=== PATIENT | male | born 2000 | race Two or more races ===

== ENCOUNTER 2023-06-15 07:00 | Outpatient (AMB) | payer OTHER, SELFPAY ==
[2023-06-15 07:16] VITALS: BP 116/72; PULSE 67; O2SAT 98; BMI 30.5
--- NOTE | 2023-06-15 07:16 | MHC.PC.OV ---
Vital Signs 06/15/23 07:16 Height 5 ft 6 in Weight 189 lb BMI 30.5 BP 116/72 Blood Pressure Location Lt brachial Position Sitting Pulse 67 Pulse Source Pulse Oximeter Pulse Oximetry (%) 98 Oxygen Delivery Method Room Air Intake Visit Reasons: physical exam Allergies cat dander [CATS] Allergy (Mild, Verified 06/15/23 07:17) UNKNOWN dog dander [DOGS] Allergy (Mild, Verified 06/15/23 07:17) UNKNOWN mold Allergy (Unknown, Verified 06/15/23 07:17) UNKNOWN cats Allergy (Unknown, Uncoded 06/15/23 07:17) Itching dogs Allergy (Unknown, Uncoded 06/15/23 07:17) Itching dust Allergy (Unknown, Uncoded 06/15/23 07:17) Itching mold Allergy (Unknown, Uncoded 06/15/23 07:17) unknown pollen Allergy (Unknown, Uncoded 06/15/23 07:17) Itching Tobacco use date assessed: 06/15/23 Dental Screening Dental Screen Date: 06/15/23 Did you have a dental visit in the last 12 months?: No Did you have a dental problem in the last 6 months where you did not have access to dental care?: No Was dental information given to patient?: No HPI HPI Comments History of Present Illness Details 23-year-old male past medical history significant for cerebral palsy is, epilepsy and obesity. Patient of presents today for physical exam. 4 years last seizure activity, not currently on medications. Patient requesting referral to neurology to establish care. Referral entered. Pating reports muffled hearing in right ear x6 months. Patient denies any right ear pain or drainage from the ear denies any fever, chills and nasal congestion. Bilateral ears noted to have cerumen in canal. Patient advise can set up an appointment for bilateral ear flushing and if he continues to experience muffled hearing can proceed with hearing studies. Patient reports bilateral feet redness, with hyperpigmented spots to top foot with occasional skin peeling. On exam patient was noted to have white feeling skin in between all toes with hyperpigmented tear areas noted to anterior foot. Will send anti fungal cream for treatment of athlete's foot Eye exam recommended every couple years. Patient gave and list of dentists Flu shot recommended. Tdap current [facility] Surgical History History of foot surgery History of hernia surgery Family History Mother No problems noted. Father No problems noted. Social History Housing: Other (Live with parents) Alcohol intake: never Patient Tobacco Use Status: Never used Tobacco e-Cigarette/Vaping Use: Former Use Second Hand Smoke Exposure: No service: No Current occupational status: unemployed Cognitive needs: No Hearing needs: No Vision needs: No Questionnaire PHQ-9 Over the last 2 weeks, how often have you been bothered by any of the following problems? 1. Little interest or pleasure in doing things: not at all 2. Feeling down, depressed, or hopeless: several days 3. Trouble falling or staying asleep, or sleeping too much: not at all 4. Feeling tired or having little energy: not at all 5. Poor appetite or overeating: not at all 6. Feeling bad about yourself - or that you are a failure or have let yourself or your family down: not at all 7. Trouble concentrating on things, such as reading the newspaper or watching television: several days 8. Moving or speaking so slowly that other people could have noticed. Or the opposite - being so fidgety or restless that you have been moving around a lot more than usual: not at all 9. Thoughts that you would be better off or of hurting yourself in some way: not at all Total score: 2 Depression Screening Interpretation: Negative Depression Screening Done: Yes Source: Developed by Drs. Yusuf Caal, Connie Huffman, Albert Morales and colleagues, with an educational surya from [employer]. Thrive Questionnaire Date Thrive assessed: 06/15/23 I am a: Patient What is your living situation today?: I have a steady place to live Within the past 12 months, did the food you bought not last and you didn't have the money to get more?: Never true Within the past 12 months, did you worry whether your food would run out before you got money to buy more?: Never true Do you have trouble paying for medicines?: No Do you have trouble getting transportation to medical appointments?: No Do you have trouble paying your heating and electricity bill?: No Do you have trouble taking care of your child, family member or friend?: No Do you have trouble with day-to-day activities such as bathing, preparing meals, shopping, managing finances, etc.?: No Are you currently unemployed and looking for a job?: No Are you interested in more education?: No Currently or been in a relationship where the following occur: no concerns reported AUDIT C Alcohol Use Questionnaire (AUDIT-C) 1. How often do you have a drink containing alcohol?: Never Total Score: 0 RAÚL-7 AMB Questionnaire RAÚL-7 Date RAÚL - 7 assessed: 06/15/23 Feeling nervous, anxious, or on edge: 1 = Several days Not being able to stop or control worryin = Not at all Worrying too much about different things: 0 = Not at all Trouble relaxin = Not at all Being so restless that it is hard to sit still: 0 = Not at all Becoming easily annoyed or irritable: 1 = Several days Feeling afraid as if something awful might happen: 0 = Not at all Total RAÚL-7 score (0-4 normal; 5-9 mild; 10-14 moderate; 15-21 severe): 2 Source: Developed by Drs. Yusuf Caal, Connie Huffman, Albert Morales and colleagues, with an educational surya from [employer]. RAÚL-7 Assessment Billing RAÚL-7 Assessment Tool: RAÚL-7 Assessment 11886 Review of Systems Const Denies chills, Denies fatigue, Denies fever(s) and Denies poor appetite Eyes Denies no additional complaints ENT Reports Normal hearing present Card Denies chest pain, Denies syncope, Denies rapid heart rate and Denies dyspnea Resp Denies cough and Denies dyspnea GI Denies change in stool character, Denies constipation, Denies diarrhea, Denies nausea and Denies vomiting Denies dysuria, Denies urinary frequency and Denies urinary urgency Neuro Reports Normal hearing present, Denies confusion and Denies syncope Psych Denies confusion Endo Denies fatigue Physical exam (Primary Care) Vital Signs: Last Vital Signs Pulse 67 06/15/23 07:16 BP 116/72 06/15/23 07:16 Pulse Ox 98 06/15/23 07:16 Oxygen Delivery Method Room Air 06/15/23 07:16 BMI result Body Mass Index 30.5 Tobacco/Smoking Status: Tobacco use Status Tobacco use date assessed 06/15/23 06/15/23 07:22 Patient Tobacco Use Status Never used Tobacco 06/15/23 07:22 e-Cigarette/Vaping Use Former Use 06/15/23 07:22 PHQ-9: PHQ-9 Score PHQ-9: Total score 2 06/15/23 09:24 Depression Screening Interpretation: Negative Thrive Assessment: Date of Thrive Assessment Date Thrive assessed 06/15/23 06/15/23 07:22 Currently or been in a relationship where the following occur: no concerns reported Const General: cooperative and healthy appearing; No acute distress or confusion Orientation/consciousness: patient oriented x3 and No confusion HENMT Head: Yes normocephalic and Yes atraumatic Ears: external ears normal and TM's normal bilaterally General nose exam: Normal external nose present and Normal nasal mucous membranes and turbinates present Face and sinus: Yes normal facial exam and Yes sinuses nontender Mouth: moist mucous membranes Throat: Yes tonsils normal Eyes Conjunctivae: conjunctivae normal Sclerae: sclerae normal Pupils: Equal, round and reactive pupils present and Pupils normal by confrontation EOM: EOMs intact bilaterally Direct Ophthalmoscopy: normal light reflex Neck Neck: Yes no lymphadenopathy and Yes supple Thyroid: Thyroid normal Chest Chest palpation & inspection: normal inspection of the chest Resp Effort & Inspection: normal respiratory effort Auscultation: clear to auscultation bilaterally, no crackles, no rhonchi and no wheezes Cardio Rate: regular rate Rhythm: regular rhythm Peripheral pulses: radial pulses present and dorsalis pedis present GI Inspection: Yes normal to inspection Palpation (GI): Soft to palpation, nontender and No hepatosplenomegaly present Auscultation: normoactive bowel sounds Skin General skin exam: no rashes or lesions noted Neuro General: patient oriented x3 and No confusion Cranial nerves: Yes CN's II-XII intact bilaterally, Yes Equal, round and reactive pupils present and Yes Normal hearing present Cognition (Neuro): normal cognition Gait exam (Neuro): Normal gait present Motor exam (neuro): 5/5 motor strength present throughout Deep tendon reflexes (DTR's): Right brachioradialis reflex intensity grade: 2+, Left brachioradialis reflex intensity grade: 2+, Right patellar reflex intensity grade: 2+ and Left patellar reflex intensity grade: 2+ Extrem General: No edema Assessment and Plan Assessment & Plan (1) Epilepsy: Code(s): G40.909 - Epilepsy, unspecified, not intractable, without status epilepticus Plan: No noted seizure activity in the last 4 years patient requesting referral to a neurologist establish care. Referral entered. (2) Cerebral palsy: Code(s): G80.9 - Cerebral palsy, unspecified (3) Tinea pedis: Code(s): B35.3 - Tinea pedis Plan: Keep his on cream prescribed daily x 6weeks. Orders: Referrals Neurology Referral G40.909 - Epilepsy, unspecified, not intractable, without status epilepticus, G80.9 - Cerebral palsy, unspecified Medications: New ketoconazole 2% for 6 weeks 1 appl topical DAILY 60 grams 0RF B35.3 - Tinea pedis Coding Level of Care Code Est Pt Prev Care 18-39y(78140) Diagnoses Epilepsy G40.909 Cerebral palsy G80.9 Tinea pedis B35.3 Additional Codes RAÚL-7 Assessment Billing - RAÚL-7 Assessment Tool: RAÚL-7 Assessment 46781 ([id number]) PHQ-9 - 08584 - PHQ-9 Billing: ([id number])
== END 2023-06-15 07:42 | disposition home or self-care (01) ==
PROVIDERS: PCP Internal Medicine; Visit Provider Nurse Practitioner Family
DX: Z00.00 Encounter for general adult medical examination without abnormal findings (principal); G40.909 Epilepsy, unspecified, not intractable, without status epilepticus; G80.9 Cerebral palsy, unspecified; B35.3 Tinea pedis
CPT/HCPCS: 99395

== ENCOUNTER 2024-03-21 13:28 | Outpatient (AMB) | payer OTHER, SELFPAY ==
--- NOTE | 2024-03-21 13:37 | A.OFFVIS_ITS ---
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 Clinical Care Coordinator Required: No Allergies cat dander [CATS] Allergy (Mild, Verified 03/21/24 13:37) UNKNOWN dog dander [DOGS] Allergy (Mild, Verified 03/21/24 13:37) UNKNOWN mold Allergy (Unknown, Verified 03/21/24 13:37) UNKNOWN cats Allergy (Unknown, Uncoded 03/21/24 13:37) Itching dogs Allergy (Unknown, Uncoded 03/21/24 13:37) Itching dust Allergy (Unknown, Uncoded 03/21/24 13:37) Itching mold Allergy (Unknown, Uncoded 03/21/24 13:37) unknown pollen Allergy (Unknown, Uncoded 03/21/24 13:37) Itching HPI Comments Details: 24y/o male with cerebral palsy - comes for further management of his seizures. His cerebral palsy is mild with right sided weakness . He started having seizures in his childhood - between ages [age] . He was trialed on different medications, but he has been seizure free for over 10 years.His seizures are staring episodes lasting 1-2 min. He denies any Tonic clonic convulsions. He stays home with his disabled daughter. 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 he sharp snot drive and does not have license. Patient reports sleep issues- loud snoring and hypersomnia. 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 Father No problems noted. Social History Housing: Other (Live with parents) Alcohol intake: never Patient Tobacco Use Status: Never used Tobacco e-Cigarette/Vaping Use: Former Use Second Hand Smoke Exposure: No service: No Current occupational status: unemployed Cognitive needs: No Hearing needs: No Vision needs: No Physical Exam Vital Signs: Last Vital Signs Pulse 70 03/21/24 13:40 Resp 16 03/21/24 13:40 BP 106/68 03/21/24 13:40 Pulse Ox 99 03/21/24 13:40 Oxygen Delivery Method Room Air 03/21/24 13:40 BMI result Body Mass Index 29.3 Const General: cooperative, healthy appearing and no acute distress Nutritional Appearance: average body habitus Orientation/consciousness: patient oriented x3 Eyes Pupils: Equal, round and reactive pupils present Neuro Other: Right spastic hemiparesis Right UE- 5-/5 Right LE - distal 0-1/5 Proximal 4+/5 Increased tone in right UE and LE Mallampatti grade 4 speech - normal General: patient oriented x3 and moves all extremities Cranial nerves: Yes Facial sensation intact/muscles of mastication intact, Yes Equal, round and reactive pupils present, Yes Bilaterally intact EOM present, Yes Nystagmus not present, Yes Normal facial strength present and Yes Midline tongue present Cognition (Neuro): normal cognition Gait exam (Neuro): Spastic hemiparesis gait present Deep tendon reflexes (DTR's): Right triceps reflex intensity grade: 3+, Left triceps reflex intensity grade: 3+, Rt Biceps (C5, C6): 3+, Left biceps reflex intensity grade: 3+, Right brachioradialis reflex intensity grade: 4+, Left brachioradialis reflex intensity grade: 3+, Right patellar reflex intensity grad e: 4+, Left patellar reflex intensity grade: 4+, Right ankle reflex intensity grade: 4+ and Left ankle reflex intensity grade: 4+ Coordination: [id number] test normal Assessment & Plan Assessment & Plan (1) Cerebral palsy: Comment: Right spastic hemiparesis Code(s): G80.9 - Cerebral palsy, unspecified Category: Medical (2) Epilepsy: Comment: last seizure 2013, complex partial, absence Code(s): G40.909 - Epilepsy, unspecified, not intractable, without status epilepticus Category: Medical (3) Snoring: Code(s): R06.83 - Snoring Category: Medical (4) Hypersomnia: Code(s): G47.10 - Hypersomnia, unspecified Category: Medical Plan I will evaluate him with MRI Brain and EEG for baseline will consider medications for seizures if he has any abnormality in his EEG Home sleep test to r/o sleep apnea. patient does not drive Orders: Orders EEG electroencephalogram Today G40.909 - Epilepsy, unspecified, not intractable, without status epilepticus, G47.10 - Hypersomnia, unspecified, G80.9 - Cerebral palsy, unspecified, R06.83 - Snoring RT home sleep study Today G40.909 - Epilepsy, unspecified, not intractable, without status epilepticus, G47.10 - Hypersomnia, unspecified, G80.9 - Cerebral palsy, unspecified, R06.83 - Snoring MR head/brain wo con Today G40.909 - Epilepsy, unspecified, not intractable, without status epilepticus, G47.10 - Hypersomnia, unspecified, G80.9 - Cerebral palsy, unspecified, R06.83 - Snoring Coding Level of Care Code New Pt Level 4 (30080) Diagnoses Cerebral palsy G80.9 Epilepsy G40.909 Snoring R06.83 Hypersomnia G47.10
[2024-03-21 13:40] VITALS: BP 106/68; PULSE 70; RESP 16; O2SAT 99; BMI 29.3
== END 2024-03-21 14:07 | disposition home or self-care (01) ==
PROVIDERS: Absent Provider Psychiatry & Neurology Neurology; PCP Internal Medicine; Visit Provider Psychiatry & Neurology Neurology
DX: G80.9 Cerebral palsy, unspecified (principal); G40.909 Epilepsy, unspecified, not intractable, without status epilepticus; R06.83 Snoring; G47.10 Hypersomnia, unspecified
CPT/HCPCS: 99204

== ENCOUNTER → 2024-03-21 13:28 | Outpatient (BNVA) | payer OTHER, SELFPAY | PROVIDERS: Absent Provider Psychiatry & Neurology Neurology; PCP Internal Medicine; Visit Provider Psychiatry & Neurology Neurology | DX: G40.909 Epilepsy, unspecified, not intractable, without status epilepticus (principal); G80.9 Cerebral palsy, unspecified; G47.10 Hypersomnia, unspecified; R06.83 Snoring | CPT/HCPCS: 99202 ==

== ENCOUNTER 2024-04-22 16:56 | Outpatient (REF) | payer OTHER, SELFPAY ==
--- NOTE | ~2024-04-22 | MR_ITS ---
EXAMINATION: MR BRAIN WITHOUT CONTRAST CLINICAL INFORMATION: 24-year-old with cerebral palsy, unspecified. History of epilepsy. COMPARISON: None available. TECHNIQUE: MRI of the brain was obtained using routine sequences without contrast. FINDINGS: Brain Volume: Within normal limits within the limitations of qualitative assessment. Structural: No malformations. Brain and Meninges: DWI sequence demonstrates no restricted diffusion to suggest acute or subacute cerebral ischemia. Susceptibility-weighted sequence demonstrates no abnormal signal loss to suggest hemorrhage, hemosiderin staining or abnormal mineralization. The brain parenchyma is normal in morphology and signal intensity. Govea-white matter interface is preserved. The mesial temporal lobe structures are bilaterally symmetric and normal in morphology and signal. No space-occupying process, mass effect or extra-axial fluid collections are seen. Ventricles and Subarachnoid Spaces: The ventricular system and subarachnoid spaces are within normal range; there is no hydrocephalus. Orbital Structures: The visualized orbital structures are grossly unremarkable within the limitations of the study. Vascular: Signal voids are noted in the visualized major intracranial vessels. Osseous Structures, Sinuses/Mastoids, Extracranial Soft Tissues: Osseous marrow signal intensity appears within normal limits. Note is made of a 2.3 cm retention cyst in the right maxillary sinus and some mucosal thickening in the left maxillary sinus. A few prominent IJ chain lymph nodes are seen bilaterally one of which on the left has a thickened cortex measuring 9 mm. Recommend follow-up neck ultrasound for further assessment at a clinically appropriate interval and correlate with clinical history. MR/MR head/brain wo con IMPRESSION: 1. Normal noncontrast MRI of the brain. 2. Bilateral maxillary sinus mucosal inflammatory changes. 3. A few prominent IJ chain lymph nodes are seen bilaterally one of which on the left has a thickened cortex. Recommend follow-up neck ultrasound at a clinically appropriate interval and correlate with clinical history. Electronically signed by: Frandy Ward MD 06/19/2024 03:56 PM [facility]
== END 2024-04-22 16:57 | disposition home or self-care (01) ==
LOC: HO.MRI 16:56
PROVIDERS: PCP Internal Medicine; Visit Provider Psychiatry & Neurology Neurology
DX: G80.9 Cerebral palsy, unspecified (principal); G40.909 Epilepsy, unspecified, not intractable, without status epilepticus; R06.83 Snoring; G47.10 Hypersomnia, unspecified
CPT/HCPCS: 70551

== ENCOUNTER → 2024-05-02 14:16 | Outpatient (REF) | payer OTHER, SELFPAY | LOC: HO.SL 14:16 | PROVIDERS: PCP Physician Assistant; Visit Provider Psychiatry & Neurology Neurology | DX: Z13.89 Encounter for screening for other disorder (principal) ==

== ENCOUNTER 2024-06-05 13:02 | Outpatient (REF) | payer OTHER, SELFPAY ==
--- NOTE | 2024-06-05 13:04 | EEG_ITS ---
This is a 16-channel EEG with an EKG lead. The patient is reported awake during the tracing. Background EEG rhythm is low amplitude fast with the patient transitioning into light drowsiness. No definite sharp wave spikes, paroxysmal tendency, or asymmetry noted. Some EKG artifacts and lead and muscle artifacts are noted. Photic stimulation does not produce any significant abnormality. Hyperventilation is not performed. Cardiac lead does not reveal any significant abnormality. IMPRESSION: Unremarkable EEG. MD ROXY Cannon/YAMILETH / [id number]
== END 2024-06-05 13:03 | disposition home or self-care (01) ==
LOC: HO.NEURO 13:02
PROVIDERS: PCP Physician Assistant; Visit Provider Psychiatry & Neurology Neurology
DX: G80.9 Cerebral palsy, unspecified (principal); G40.909 Epilepsy, unspecified, not intractable, without status epilepticus; R06.83 Snoring; G47.10 Hypersomnia, unspecified; R80.9 Proteinuria, unspecified
CPT/HCPCS: 95816

== ENCOUNTER → 2024-06-05 14:11 | Outpatient (REF) | payer OTHER, SELFPAY | LOC: HO.SL 14:11 | PROVIDERS: PCP Physician Assistant; Visit Provider Psychiatry & Neurology Neurology | DX: G80.9 Cerebral palsy, unspecified (principal); G40.909 Epilepsy, unspecified, not intractable, without status epilepticus; R06.83 Snoring | CPT/HCPCS: 95806 ==

== ENCOUNTER 2024-07-09 12:20 | Outpatient (REF) | payer OTHER, SELFPAY ==
[2024-07-09 13:37] LABS: Hematocrit 45.5 % (42.0-52.0); Hemoglobin 15.8 g/dl (14.0-18.0); Mean Corpuscular HGB Conc 34.7 g/dl (31.0-36.0); Mean Corpuscular Hemoglobin 29.8 pg (27.0-33.0); Mean Corpuscular Volume 85.7 fL (80.0-98.0); Mean Platelet Volume 10.8 fL (9.4-12.4); Platelet Count 275 X10*3/uL (160-400); Red Blood Count 5.31 X10*6/uL (4.60-5.80); Red Cell Distribution Width 12.5 % (11.0-16.0); White Blood Count 7.7 X10*3/uL (4.8-10.8)
[2024-07-09 13:59] LABS: Alanine Aminotransferase 33 U/L (0-40); Albumin Level 4.7 g/dL (3.5-5.0); Alkaline Phosphatase 103 U/L (39-117); Anion Gap 11 (12-20); Aspartate Amino Transferase 22 U/L (5-37); Bilirubin Total 0.4 mg/dL (0.0-1.0); Blood Urea Nitrogen 8 mg/dL (9-16); Calcium 9.9 mg/dL (8.4-10.2); Carbon Dioxide 29 mmol/L (22-29); Chloride 106 mmol/L (96-108); Estimated Glomerular Filt Rate > 60; Glucose Fasting 71 mg/dL (60-99); Potassium 4.2 mmol/L (3.3-5.1); Sodium 142 mmol/L (135-145); Total Protein 7.9 g/dL (6.5-8.0)
== END 2024-07-09 12:21 | disposition home or self-care (01) ==
LOC: HO.LAB 12:20
PROVIDERS: PCP Physician Assistant; Visit Provider Physician Assistant
DX: Z13.1 Encounter for screening for diabetes mellitus (principal); B35.3 Tinea pedis; G80.2 Spastic hemiplegic cerebral palsy
CPT/HCPCS: 36415; 80053; 85027; 96127; 99395

== ENCOUNTER 2024-07-09 12:20 | Outpatient (AMB) | payer OTHER, SELFPAY ==
[2024-07-09 12:24] VITALS: BP 118/62; PULSE 94; O2SAT 97; BMI 30.2
--- NOTE | 2024-07-09 12:24 | A.OFFPC_ITS ---
Vital Signs 07/09/24 12:24 Height 5 ft 6 in Weight 187 lb BMI 30.2 BP 118/62 Blood Pressure Location Lt brachial Position Sitting Pulse 94 Pulse Source Pulse Oximeter Pulse Oximetry (%) 97 Oxygen Delivery Method Room Air Intake Visit Reasons: annual exam Intake Note: Pt is here for transfer of care from formerly [facility]. Activity Therapist Required: No Accompanied by: Self / Same As Patient Allergies cat dander [CATS] Allergy (Mild, Verified 07/09/24 12:36) UNKNOWN dog dander [DOGS] Allergy (Mild, Verified 07/09/24 12:36) UNKNOWN mold Allergy (Unknown, Verified 07/09/24 12:36) UNKNOWN cats Allergy (Unknown, Uncoded 07/09/24 12:36) Itching dogs Allergy (Unknown, Uncoded 07/09/24 12:36) Itching dust Allergy (Unknown, Uncoded 07/09/24 12:36) Itching mold Allergy (Unknown, Uncoded 07/09/24 12:36) unknown pollen Allergy (Unknown, Uncoded 07/09/24 12:36) Itching Medication List - Last Reconciled 07/09/24 by Nathaniel Castillo PA-C No Known Home Meds Tobacco use date assessed: 07/09/24 Dental Screening Dental Screen Date: 06/15/23 HPI annual exam HPI Details Patient is a 24 year male here today for an annual physical and transfer care visit. Patient has a past medical history significant for cerebral palsy and epilepsy. He is followed by a local neurologist. Concerns--> reports hyperpigmented spots over his bilateral feet and ankles have spread. Also reports having various pain generators including his right shoulder, left ribs and lower back. We attributes some of his pains to be related to his cerebral palsy. He is willing to try muscle relaxer as needed for his pain. Vaccines: Declines flu vaccine, needs tetanus though declines today as well. [facility] Medical History Hypersomnia Snoring Class 1 obesity with body mass index (BMI) of 30.0 to 30.9 in adult Epilepsy Cerebral palsy Tinea pedis Surgical History History of foot surgery History of hernia surgery Family History Mother No problems noted. Father No problems noted. Social History Housing: Other (Live with parents) Alcohol intake: never Patient Tobacco Use Status: Never used Tobacco e-Cigarette/Vaping Use: Former Use Second Hand Smoke Exposure: No service: No Current occupational status: unemployed Cognitive needs: No Hearing needs: No Vision needs: No Questionnaire PHQ-9 Over the last 2 weeks, how often have you been bothered by any of the following problems? 1. Little interest or pleasure in doing things: not at all 2. Feeling down, depressed, or hopeless: not at all 3. Trouble falling or staying asleep, or sleeping too much: more than half the days 4. Feeling tired or having little energy: several days 5. Poor appetite or overeating: not at all 6. Feeling bad about yourself - or that you are a failure or have let yourself or your family down: not at all 7. Trouble concentrating on things, such as reading the newspaper or watching television: not at all 8. Moving or speaking so slowly that other people could have noticed. Or the opposite - being so fidgety or restless that you have been moving around a lot more than usual: not at all 9. Thoughts that you would be better off or of hurting yourself in some way: not at all Total score: 3 Depression Screening Interpretation: Positive Depression Screening Follow-up: Existing condition Depression Screening Done: Yes 60463 - PHQ-9 Billing: Yes Source: Developed by Drs. Yusuf Caal, Connie Huffman, Albert Morales and colleagues, with an educational surya from [employer]. Thrive Questionnaire Date Thrive assessed: 07/09/24 I am a: Patient What is your living situation today?: I have a steady place to live Within the past 12 months, did the food you bought not last and you didn't have the money to get more?: I choose not to answer this question Within the past 12 months, did you worry whether your food would run out before you got money to buy more?: Never true Do you have trouble paying for medicines?: No Do you have trouble getting transportation to medical appointments?: No Do you have trouble paying your heating and electricity bill?: No Do you have trouble taking care of your child, family member or friend?: No Do you have trouble with day-to-day activities such as bathing, preparing meals, shopping, managing finances, etc.?: No Are you currently unemployed and looking for a job?: I choose not to answer this question Are you interested in more education?: No Please select the resources that you would like help with: None Currently or been in a relationship where the following occur: No concerns reported THRIVE Score: 0 AUDIT C Alcohol Use Questionnaire (AUDIT-C) 1. How often do you have a drink containing alcohol?: Never 3. How often do you have six or more drinks on one occasion?: Never Total Score: 0 RAÚL-7 AMB Questionnaire RAÚL-7 Date RAÚL - 7 assessed: 07/09/24 Feeling nervous, anxious, or on edge: 0 = Not at all Not being able to stop or control worryin = Not at all Worrying too much about different things: 0 = Not at all Trouble relaxin = Not at all Being so restless that it is hard to sit still: 0 = Not at all Becoming easily annoyed or irritable: 0 = Not at all Feeling afraid as if something awful might happen: 0 = Not at all Total RAÚL-7 score (0-4 normal; 5-9 mild; 10-14 moderate; 15-21 severe): 0 Source: Developed by Drs. Yusuf Caal, Connie Huffman, Albert Morales and colleagues, with an educational surya from [employer]. RAÚL-7 Assessment Billing RAÚL-7 Assessment Tool: RAÚL-7 Assessment 34247 Review of Systems Const Denies body aches, Denies chills, Denies excessive sweating, Denies fatigue, Denies fever(s) and Denies headache(s) Eyes Denies blurry vision ENT Denies dysphagia, Denies vertigo, Denies dizziness, Denies headache(s), Denies hearing loss and Denies tinnitus Card Denies chest pain, Denies chest pain with activity, Denies syncope, Denies irregular heart rhythm and Denies dyspnea Resp Denies chest congestion, Denies cough, Denies hemoptysis, Denies dyspnea and Denies wheezing GI Denies abdominal pain, Denies melena, Denies hematochezia, Denies coffee ground emesis, Denies dysphagia, Denies diarrhea, Denies nausea and Denies vomiting Denies difficulty urinating, Denies dysuria, Denies urinary frequency, Denies urinary hesitancy and Denies urinary urgency Musc Denies arthralgias, Denies limited range of motion, Denies muscle cramps and Denies muscle weakness Skin/Breast Denies rash and Denies skin ulcer Neuro Denies Abnormal speech present, Denies confusion, Denies vertigo, Denies dizziness, Denies syncope, Denies headache(s), Denies memory loss and Denies seizure-like activity Psych Denies anxiety, Denies confusion, Denies depression, Denies memory loss, Denies panic attacks and Denies paranoia Endo Denies excessive sweating, Denies fatigue, Denies flushing, Denies polydipsia and Denies polyuria Aller/Immun Denies wheezing Physical exam (Primary Care) Vital Signs: Last Vital Signs Pulse 94 07/09/24 12:24 BP 118/62 07/09/24 12:24 Pulse Ox 97 07/09/24 12:24 Oxygen Delivery Method Room Air 07/09/24 12:24 BMI result Body Mass Index 30.2 BMI Assessment/Plan discussion: High BMI High, discussed plan: lifestyle, weight reduction, dietary and physical activity Tobacco/Smoking Status: Tobacco use Status Tobacco use date assessed 07/09/24 07/09/24 12:28 Patient Tobacco Use Status Never used Tobacco 07/09/24 12:24 e-Cigarette/Vaping Use Former Use 07/09/24 12:24 PHQ-9: PHQ-9 Score PHQ-9: Total score 3 07/09/24 12:28 Depression Screening Interpretation: Positive Depression Screening Follow-up: Existing condition Thrive Assessment: Date of Thrive Assessment Date Thrive assessed 07/09/24 07/09/24 12:28 Currently or been in a relationship where the following occur: No concerns reported Const General: cooperative, comfortable, no acute distress, alert and awake; No c onfusion Orientation/consciousness: oriented to person, oriented to place, patient oriented x3 and No confusion HENMT Other: RIGHT EXTERNAL CANAL WITH SOME MINIMAL CERUMEN Head: Yes normocephalic Ears: external ears normal and TM's normal bilaterally Face and sinus: No sinus tenderness Mouth: Normal oral and palatal mucosa present and tongue normal Teeth and gingiva: dentition normal and gingiva normal Throat: Yes posterior oropharynx normal, Yes tonsils normal and Yes uvula midline Eyes Conjunctivae: conjunctivae normal Sclerae: sclerae normal Pupils: Equal, round and reactive pupils present EOM: EOMs intact bilaterally Direct Ophthalmoscopy: No no photophobia Neck Neck: Yes no lymphadenopathy, No tender and Yes no JVD Thyroid: Thyroid normal Carotids: no bruits Chest Chest palpation & inspection: no tenderness Resp Effort & Inspection: normal respiratory effort, no audible wheezes, not labored and no stridor Auscultation: no crackles, no rales, no rhonchi and no wheezes Cardio Jugular venous distension: no JVD Rate: regular rate, not bradycardic and not tachycardic Rhythm: regular rhythm Bruits: no carotid bruits Peripheral pulses: Peripheral pulses 2+ throughout GI Inspection: Yes normal to inspection, No abdominal wall ecchymosis and No visible herniation Palpation (GI): Soft to palpation, nontender, no guarding, not rigid and No hepatosplenomegaly present Auscultation: normoactive bowel sounds General: Yes no CVA tenderness Back/Spine/Pelvis Back: no CVA tenderness and No back tenderness Cervical Spine: cervical ROM normal Thoracic/Lumbar Spine: thoracic and lumbar spine normal to inspection, straight leg raise negative bilaterally, No thoraco-lumbar ROM limited and No lumbar spinal tenderness Skin Lesions: no lesions Rashes: no rashes Wounds: no wounds Neuro General: oriented to person, oriented to place, patient oriented x3, CN's II-XI intact bilaterally and No confusion Cranial nerves: Yes Equal, round and reactive pupils present and Yes Normal accommodation reflex present Cognition (Neuro): normal cognition Speech: No Abnormal speech present Gait exam (Neuro): Normal gait present Motor exam (neuro): 5/5 motor strength present throughout Extrem Right upper extremity: full ROM; no cyanosis Left upper extremity: full ROM; no cyanosis Right lower extremity: no edema Left lower extremity: no edema Psych Appearance: grossly normal Mental Status: mental status grossly normal Affect: normal affect Attitude: cooperative Thought process: Normal thought process present Office Procedures Flu Questionnaire Does the patient have a severe egg allergy?: No Immunizations Fluarix Triv [id number] (PF) 45 mcg (15 mcg x 3)/0.5 mL IM syringe Performing Provider: Nathaniel Castillo PA-C [place] [facility] [facility] [place] [facility] Documented (not given) by: JANE Ricketts on 07/09/24 12:30 Reason Not Given: Patient Refused Coding Level of Care Code Est Pt Prev Care 18-39y([id number]) Diagnoses Annual physical exam Z00.00 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 Cerebral palsy type: spastic hemiplegic Nonintractable epilepsy without status epilepticus, unspecified epilepsy type G40.909 Epilepsy type: unspecified Intractability: not intractable Status epilepticus: without status epilepticus Class 1 obesity E66.811 Tinea pedis of both feet B35.3 Laterality: bilateral Screening for diabetes mellitus (DM) Z13.1 Sensorineural hearing loss (SNHL) of right ear, unspecified hearing status on contralateral side H90.5 Contralateral hearing status: unspecified Additional Codes RAÚL-7 Assessment Billing - RAÚL-7 Assessment Tool: RAÚL-7 Assessment 19524 ([id number]) PHQ-9 - 77234 - PHQ-9 Billing: Yes ([id number]) Assessment & Plan Assessment & Plan (1) Annual physical exam: Code(s): Z00.00 - Encounter for general adult medical examination without abnormal findings Category: Medical Plan: As per HPI (2) Cerebral palsy: Comment: Right spastic hemiparesis Code(s): G80.9 - Cerebral palsy, unspecified Category: Medical Qualifiers: Cerebral palsy type: spastic hemiplegic Qualified Code(s): G80.2 - Spastic hemiplegic cerebral palsy Plan: Patient followed by Neurology (3) Epilepsy: Comment: last seizure 2013, complex partial, absence Code(s): G40.909 - Epilepsy, unspecified, not intractable, without status epilepticus Category: Medical Qualifiers: Epilepsy type: unspecified Intractability: not intractable Status epilepticus: without status epilepticus Qualified Code(s): G40.909 - Epilepsy, unspecified, not intractable, without status epilepticus Plan: Has not had a seizure in over 10 years, not on any seizure medication at this time. (4) Class 1 obesity: Code(s): E66.811 - Obesity, class 1 Category: Medical Plan: Patient does understand his BMI is over 30 will work on being more physically active and adapting to better eating habits to reduce his weight. (5) Tinea pedis: Code(s): B35.3 - Tinea pedis Category: Medical Qualifiers: Laterality: bilateral Qualified Code(s): B35.3 - Tinea pedis Plan: Has noted spotted hyperpigmentation over bilateral feet and ankles. He has tri ed to cream in the past which has been helpful though reports his spots have returned. Unclear if his spots are hemosiderin staining versus tinea versicolor. Will supply patient with ketoconazole cream to use on the areas. (6) Screening for diabetes mellitus (DM): Code(s): Z13.1 - Encounter for screening for diabetes mellitus Category: Medical Plan: As per HPI (7) Right SNHL: Code(s): H90.5 - Unspecified sensorineural hearing loss Category: Medical Qualifiers: Contralateral hearing status: unspecified Qualified Code(s): H90.5 - Unspecified sensorineural hearing loss Plan: Patient reports muffled hearing over his right ear. Did clear his right ear from some minimal cerumen . Will send for hearing exam Orders: Orders Influenza [id number] Immunization Today Z23 - Encounter for immunization Complete Blood Count no Diff Today Z13.1 - Encounter for screening for diabetes mellitus Comprehensive [place]. Panel Fast Today Z13.1 - Encounter for screening for diabetes mellitus Referrals Speech and Hearing Referral H90.5 - Unspecified sensorineural hearing loss Medications: New ketoconazole 2% 1 appl topical DAILY 30 days 60 grams 0RF B35.3 - Tinea pedis baclofen 5 mg PO DAILY 14 days 14 tabs 0RF G80.2 - Spastic hemiplegic cerebral palsy
== END 2024-07-09 13:07 | disposition home or self-care (01) ==
PROVIDERS: PCP Physician Assistant; Visit Provider Physician Assistant
DX: Z00.00 Encounter for general adult medical examination without abnormal findings (principal); G80.2 Spastic hemiplegic cerebral palsy; G40.909 Epilepsy, unspecified, not intractable, without status epilepticus; E66.811 Obesity, class 1; Z68.30 Body mass index [BMI] 30.0-30.9, adult; B35.3 Tinea pedis; Z13.1 Encounter for screening for diabetes mellitus; H90.5 Unspecified sensorineural hearing loss

== ENCOUNTER 2024-07-31 16:11 | Outpatient (REF) | payer OTHER, SELFPAY ==
--- NOTE | ~2024-07-31 | US_ITS ---
EXAMINATION: US SOFT TISSUE HEAD AND/OR NECK CLINICAL INFORMATION: Localized enlarged lymph nodes.. COMPARISON: None available. Correlation made with MRI of brain 04/22/2024. TECHNIQUE: Linear transducer singh-scale and color Doppler examination with attention to the region of the bilateral neck vaishali regions. FINDINGS: NODES: Right Neck: -Left level II lymph nodes measure 1.6 x 0.5 x 1.4 cm, and 3.3 x 1.2 x 1.7 cm. -Left level III lymph node measures 2.1 x 0.4 x 1.1 cm. -Left level IV lymph node measures 1.0 x 0.3 x 0.4 cm. Left Neck: -Left level II lymph nodes measure 2.4 x 1.1 x 1.2 cm, and 1.5 x 0.7 x 1.7 cm. -Left level III lymph node measures 0.8 x 0.4 x 0.7 cm. -Left level IV lymph node measures 1.4 x 0.4 x 0.6 cm. -All the above lymph nodes demonstrate preserved fatty salomon, reniform shape, no significant hyperemia, and no suspicious features. These are likely reactive lymph nodes. -No soft tissue fluid collections. US/US soft tiss head and/or neck IMPRESSION: 1. Reactive appearing bilateral cervical chain lymph nodes as discussed. No suspicious features seen. 2. There is continued clinical concern, CT of the neck with contrast would be recommended if felt to alter management. Alternatively, follow-up ultrasound in 6-8 weeks could be considered. Electronically signed by: Tristan Gutierrez MD 08/01/2024 09:22 AM NATALEE
== END 2024-07-31 16:12 | disposition home or self-care (01) ==
LOC: HO.US 16:11
PROVIDERS: PCP Physician Assistant; Visit Provider Physician Assistant
DX: R59.0 Localized enlarged lymph nodes (principal)
CPT/HCPCS: 76536

== ENCOUNTER → 2024-07-31 16:15 | Outpatient (BNV) | payer OTHER, SELFPAY | PROVIDERS: PCP Physician Assistant; Visit Provider Radiology Diagnostic Radiology | DX: R59.0 Localized enlarged lymph nodes (principal) | CPT/HCPCS: 76536 ==

== ENCOUNTER 2024-08-08 13:47 | Outpatient (REF) | payer OTHER, SELFPAY | END 2024-08-08 13:48 | disposition home or self-care (01) | LOC: HO.SH 13:47 | PROVIDERS: Visit Provider Physician Assistant | DX: Z01.118 Encounter for examination of ears and hearing with other abnormal findings (principal); H93.293 Other abnormal auditory perceptions, bilateral | CPT/HCPCS: 92557; 92567 ==

== ENCOUNTER 2024-10-17 14:28 | Outpatient (AMB) | payer OTHER, SELFPAY ==
[2024-10-17 14:37] VITALS: BP 136/90; PULSE 60; TEMP 36.3; O2SAT 98; BMI 29.3
--- NOTE | 2024-10-17 14:37 | A.OFFPC_ITS ---
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: No Accompanied by: Self / Same As Patient Allergies cat dander [CATS] Allergy (Mild, Verified 10/17/24 14:39) UNKNOWN dog dander [DOGS] Allergy (Mild, Verified 10/17/24 14:39) UNKNOWN mold Allergy (Unknown, Verified 10/17/24 14:39) UNKNOWN cats Allergy (Unknown, Uncoded 10/17/24 14:39) Itching dogs Allergy (Unknown, Uncoded 10/17/24 14:39) Itching dust Allergy (Unknown, Uncoded 10/17/24 14:39) Itching mold Allergy (Unknown, Uncoded 10/17/24 14:39) unknown pollen Allergy (Unknown, Uncoded 10/17/24 14:39) Itching Medication List - Last Reconciled 10/17/24 by Nathaniel Castillo PA-C baclofen 5 mg PO DAILY 14 days ketoconazole 2% 1 appl topical DAILY 30 days Tobacco use date assessed: 10/17/24 Dental Screening Dental Screen Date: 10/17/24 Did you have a dental visit in the last 12 months?: Yes Did you have a dental problem in the last 6 months where you did not have access to dental care?: No Was dental information given to patient?: Patient has dentist HPI [facility] 10/04 HPI Details Patient is a 24-year-old male here today for an ER follow-up visit. He was seen at the ER in September of 2024 for throat pain, workup included rapid strep which was negative though culture came back positive for strep. He has gotten soft tissue CT of the neck that did show--> Reactive appearing bilateral cervical chain lymph nodes as discussed. No suspicious features seen. He has been given antibiotics and now feeling a bit better. The patient is trialing a CPAP machine due to previously diagnosed obstructive sleep apnea. The early phase of the trial was compromised due to familial responsibilities, impacting adherence. Notifications of increased apneic episodes have been received from CPAP monitoring, prompting further inquiry. Overall, adherence challenges with the CPAP trial have prompted the patient to seek extended evaluation opportunities to establish consistent therapy usage. COUNT INCLUDES THE [facility] Medical History Hypersomnia Snoring Class 1 obesity with body mass index (BMI) of 30.0 to 30.9 in adult Epilepsy Cerebral palsy Tinea pedis Surgical History History of foot surgery History of hernia surgery Family History Mother No problems noted. Father No problems noted. Social History Housing: Other (Live with parents) Alcohol intake: never Patient Tobacco Use Status: Never used Tobacco e-Cigarette/Vaping Use: Former Use Second Hand Smoke Exposure: No service: No Current occupational status: unemployed Cognitive needs: No Hearing needs: No Vision needs: No Questionnaire PHQ-9 Over the last 2 weeks, how often have you been bothered by any of the following problems? 1. Little interest or pleasure in doing things: not at all 2. Feeling down, depressed, or hopeless: not at all 3. Trouble falling or staying asleep, or sleeping too much: not at all 4. Feeling tired or having little energy: not at all 5. Poor appetite or overeating: not at all 6. Feeling bad about yourself - or that you are a failure or have let yourself or your family down: not at all 7. Trouble concentrating on things, such as reading the newspaper or watching television: not at all 8. Moving or speaking so slowly that other people could have noticed. Or the opposite - being so fidgety or restless that you have been moving around a lot more than usual: not at all 9. Thoughts that you would be better off or of hurting yourself in some way: not at all Total score: 0 Depression Screening Interpretation: Negative Depression Screening Done: Yes 27718 - PHQ-9 Billing: Yes Source: Developed by Drs. Yusuf Caal, Connie Huffman, Albert Morales and colleagues, with an educational surya from [employer]. Thrive Questionnaire Date Thrive assessed: 10/17/24 I am a: Patient What is your living situation today?: I have a steady place to live Within the past 12 months, did the food you bought not last and you didn't have the money to get more?: I choose not to answer this question Within the past 12 months, did you worry whether your food would run out before you got money to buy more?: Never true Do you have trouble paying for medicines?: No Do you have trouble getting transportation to medical appointments?: No Do you have trouble paying your heating and electricity bill?: No Do you have trouble taking care of your child, family member or friend?: No Do you have trouble with day-to-day activities such as bathing, preparing meals, shopping, managing finances, etc.?: No Are you currently unemployed and looking for a job?: I choose not to answer this question Are you interested in more education?: No Please select the resources that you would like help with: None Currently or been in a relationship where the following occur: No concerns reported THRIVE Score: 0 AUDIT C Alcohol Use Questionnaire (AUDIT-C) 1. How often do you have a drink containing alcohol?: Never 3. How often do you have six or more drinks on one occasion?: Never Total Score: 0 RAÚL-7 AMB Questionnaire RAÚL-7 Date RAÚL - 7 assessed: 10/17/24 Feeling nervous, anxious, or on edge: 0 = Not at all Not being able to stop or control worryin = Not at all Worrying too much about different things: 0 = Not at all Trouble relaxin = Not at all Being so restless that it is hard to sit still: 0 = Not at all Becoming easily annoyed or irritable: 0 = Not at all Feeling afraid as if something awful might happen: 0 = Not at all Total RAÚL-7 score (0-4 normal; 5-9 mild; 10-14 moderate; 15-21 severe): 0 Source: Developed by Drs. Yusuf Caal, Connie Huffman, Albert Morales and colleagues, with an educational surya from [employer] RAÚL-7 Assessment Billing RAÚL-7 Assessment Tool: RAÚL-7 Assessment 21442 Review of Systems Const Denies headache(s) Eyes Denies loss of vision ENT Denies vertigo, Denies dizziness, Denies headache(s) and Denies sore throat Card Denies chest pain, Denies leg edema and Denies lightheadedness Resp Denies cough, Denies hemoptysis and Denies wheezing GI Denies abdominal pain, Denies melena, Denies constipation, Denies diarrhea and Denies vomiting Denies dysuria, Denies urinary frequency and Denies urinary urgency Musc Denies arthralgias, Denies joint swelling, Denies numbness and Denies tingling Neuro Denies Abnormal speech present, Denies behavioral changes, Denies vertigo, Denies dizziness, Denies headache(s), Denies loss of vision, Denies memory loss, Denies numbness and Denies tingling Psych Denies anxiety, Denies behavioral changes, Denies depression, Denies memory loss and Denies panic attacks Clarke/Lymph Denies easy bleeding and Denies easy bruising Aller/Immun Denies wheezing Physical exam (Primary Care) Vital Signs: Last Vital Signs Temp 97.3 F 10/17/24 14:37 Pulse 60 10/17/24 14:37 BP 136/90 H 10/17/24 14:37 Pulse Ox 98 10/17/24 14:37 Oxygen Delivery Method Room Air 10/17/24 14:37 BMI result Body Mass Index 29.3 Tobacco/Smoking Status: Tobacco use Status Tobacco use date assessed 10/17/24 10/17/24 14:39 Patient Tobacco Use Status Never used Tobacco 10/17/24 14:39 e-Cigarette/Vaping Use Former Use 10/17/24 14:39 PHQ-9: PHQ-9 Score PHQ-9: Total score 0 10/17/24 14:39 Depression Screening Interpretation: Negative Thrive Assessment: Date of Thrive Assessment Date Thrive assessed 10/17/24 10/17/24 14:39 Currently or been in a relationship where the following occur: No concerns reported Const General: healthy appearing, no acute distress, alert and awake Nutritional Appearance: well nourished Orientation/consciousness: oriented to person, oriented to place and oriented to time HENMT Ears: TM's normal bilaterally General nose exam: Normal nasal mucous membranes and turbinates present Eyes Conjunctivae: conjunctivae normal Sclerae: sclerae normal Pupils: Equal, round and reactive pupils present Neck Neck: Yes no lymphadenopathy and Yes no JVD Thyroid: Thyroid normal Carotids: no bruits Resp Effort & Inspection: normal respiratory effort and not tachypneic Auscultation: no crackles, no rales, no rhonchi and no wheezes Cardio Rate: regular rate Rhythm: regular rhythm Heart sounds: no murmurs and normal S1 and S2 GI Palpation (GI): Soft to palpation, nontender, no hepatomegaly and no splenomegaly Auscultation: normal bowel sounds Skin General skin exam: no rashes or lesions noted and dry skin Neuro General: oriented to person, oriented to place and oriented to time Cranial nerves: Yes Equal, round and reactive pupils present Speech: No Abnormal speech present Gait exam (Neuro): Normal gait present Motor exam (neuro): no tremor noted Extrem Right upper extremity: full ROM Left upper extremity: full ROM Right lower extremity: full ROM; no edema Left lower extremity: full ROM; no edema Psych Mental Status: mental status grossly normal Speech and movement: Normal speech and movement present Affect: normal affect Attitude: cooperative Thought process: Normal thought process present Coding Level of Care Code Est Pt Level 4 (33946) Diagnoses Cervical lymphadenopathy R59.0 ASHLEY (obstructive sleep apnea) G47.33 Additional Codes RAÚL-7 Assessment Billing - RAÚL-7 Assessment Tool: RAÚL-7 Assessment 07910 ([id number]) PHQ-9 - 33405 - PHQ-9 Billing: Yes ([id number]) Assessment & Plan Assessment & Plan (1) Cervical lymphadenopathy: Code(s): R59.0 - Localized enlarged lymph nodes Category: Medical Plan: Patient's cervical lymphadenopathy likely secondary to his strep infection. He has been treated with antibiotics and feeling better. He has no difficulty swallowing. He is now using CPAP machine as well and now in a trial period with a machine. (2) ASHLEY (obstructive sleep apnea): Code(s): G47.33 - Obstructive sleep apnea (adult) (pediatric) Category: Medical Plan: The CPAP trial has faced adherence challenges; a supportive letter will be drafted to extend the trial. Ensuring consistent usage will facilitate insurance coverage and allow for more comprehensive evaluation of the condition. Orders: Orders Complete Blood Count no Diff 10/17/24 R59.0 - Localized enlarged lymph nodes Comprehensive Met. Panel 10/17/24 R59.0 - Localized enlarged lymph nodes Medications: New diclofenac sodium 1% (Aspercreme Arthritis Pain) apply to single elbow, wrist or hand; for hand includes palm/fingers/back of hand 2 grams topical QID 100 grams 0RF 30 days M79.643 - Pain in unspecified hand
== END 2024-10-17 15:46 | disposition home or self-care (01) ==
LOC: HO.HMCH 14:28
PROVIDERS: PCP Physician Assistant; Visit Provider Physician Assistant
DX: R59.0 Localized enlarged lymph nodes (principal); G47.33 Obstructive sleep apnea (adult) (pediatric)

== ENCOUNTER 2024-10-17 14:28 | Outpatient (REF) | payer OTHER, SELFPAY ==
[2024-10-17 15:29] LABS: Hematocrit 45.8 % (42.0-52.0); Mean Corpuscular HGB Conc 32.8 g/dl (31.0-36.0); Mean Corpuscular Volume 88.4 fL (80.0-98.0); Mean Platelet Volume 10.9 fL (9.4-12.4); Platelet Count 239 X10*3/uL (160-400); Red Blood Count 5.18 X10*6/uL (4.60-5.80); Red Cell Distribution Width 13.1 % (11.0-16.0); White Blood Count 5.8 X10*3/uL (4.8-10.8)
[2024-10-17 15:59] LABS: Alanine Aminotransferase 13 U/L (0-40); Albumin Level 4.5 g/dL (3.5-5.0); Anion Gap 10 (12-20); Aspartate Amino Transferase 15 U/L (5-37); Bilirubin Total 0.4 mg/dL (0.0-1.0); Blood Urea Nitrogen 8 mg/dL (9-16); Carbon Dioxide 27 mmol/L (22-29); Chloride 109 mmol/L (96-108); Estimated Glomerular Filt Rate > 60; Glucose Random 91 mg/dL (60-115); Potassium 4.2 mmol/L (3.3-5.1); Sodium 142 mmol/L (135-145); Total Protein 7.1 g/dL (6.5-8.0)
[2024-10-17 16:06] LABS: Alkaline Phosphatase 100 U/L (39-117)
== END 2024-10-17 14:29 | disposition home or self-care (01) ==
LOC: HO.LAB 14:28
PROVIDERS: PCP Physician Assistant; Visit Provider Physician Assistant
DX: R59.0 Localized enlarged lymph nodes (principal); G47.33 Obstructive sleep apnea (adult) (pediatric)
CPT/HCPCS: 36415; 80053; 85027; 96127; 99212

== ENCOUNTER 2024-11-01 13:50 | Outpatient (AMB) | payer OTHER, SELFPAY ==
[2024-11-01 13:55] VITALS: BP 130/82; PULSE 64; O2SAT 98; BMI 29.6
--- NOTE | 2024-11-01 13:55 | A.OFFVIS_ITS ---
Vital Signs 11/01/24 13:55 Height 5 ft 6 in Weight 183 lb 6 oz BMI 29.6 BP 130/82 Blood Pressure Location Lt brachial Position Sitting Pulse 64 Pulse Source Pulse Oximeter Pulse Oximetry (%) 98 Oxygen Delivery Method Room Air Intake Visit Reasons: Follow up Intake Note: patient presents for follow up epilepsy. MRI 04/22/24; EEG 06/05/24; sleep study 06/05/24. Allergies cat dander [CATS] Allergy (Mild, Verified 11/01/24 13:59) UNKNOWN dog dander [DOGS] Allergy (Mild, Verified 11/01/24 13:59) UNKNOWN mold Allergy (Unknown, Verified 11/01/24 13:59) UNKNOWN cats Allergy (Unknown, Uncoded 10/17/24 14:39) Itching dogs Allergy (Unknown, Uncoded 10/17/24 14:39) Itching dust Allergy (Unknown, Uncoded 10/17/24 14:39) Itching mold Allergy (Unknown, Uncoded 10/17/24 14:39) unknown pollen Allergy (Unknown, Uncoded 10/17/24 14:39) Itching HPI Comments Details: 24y/o male with cerebral palsy, here for further management of his seizures and ASHLEY 06/24/2024 HST completed, AHI 6, OAI was 2.5 and Oxygen Nadirs to 88%, he started on APap at [id number] and monitor for compliance. He denies any seizure like activity. He is sleeping well with his machine he picked it up in Jul 2024, and goes to bed at 2am to 3am with no bathroom breaks. He had strep throat 10/03/24, and missed some weeks due to difficulty breathing with the cpap machine. He says his pressures are okay for him will monitor closes for difficulty as he had a few prominent bilateral IJ cervical lymph nodes on US in Jul 2024, he is following up with PCP every 6-8 weeks with US. His cerebral palsy is mild with right sided weakness, shoulder, trapezius and low back pain, denies numbness, or tingling in upper or lower extremity bilaterally. He uses baclofen and Aspercreme as needed for pain, as he prefers not to take oral medication. He started having seizures in his childhood, between the ages 2-5. He was trialed on different medications, but he has been seizure free for over 10 years. His seizures are staring episodes lasting 1-2 min and were classified as Abscence Seizure. He denies any Tonic Clonic convulsions. He stays home with his 6 year old disabled daughter, as he is her primary caregiver she has a rare genetic disorder TBCK. He does not drive and does not have a license. He reports he continues to have fragmented sleep patterns especially when his daughter gets ill. He knows his triggers and limitations, he eliminates stress, eats a nutritionally dense diet, cleans the home and does chores at home with his mother as he is able to and is not interested in any other social activities right now. His mood is stable and diet continues to improve. We discussed eliminated all MJ products, smoking nicotine, vaping MJ, edibles, gummies, from his recreational activites as they can trigger events. He changes his filters, water and washes his mask daily, requests supplies as needed. ASHLEY Compliance Report 07/2024 to 10/2024 Total usage is 57/90 days and 63%, >4 hours 42 days and 47% Avg total per day is 2 hours and 48min at FT EPR Level 2 APAP [id number] Therapy is set to Median 8.5 to max 13.0, Leaks median 0-max 9.7cmH20 AHI is 9.7 AI is 7.3 obstructive and 1.8 central [facility] Medical History Hypersomnia Snoring Class 1 obesity with body mass index (BMI) of 30.0 to 30.9 in adult Epilepsy Cerebral palsy Tinea pedis Surgical History History of foot surgery History of hernia surgery Family History Mother No problems noted. Father No problems noted. Social History Housing: Other (Live with parents) Alcohol intake: never Patient Tobacco Use Status: Never used Tobacco e-Cigarette/Vaping Use: Former Use Second Hand Smoke Exposure: No service: No Current occupational status: unemployed Cognitive needs: No Hearing needs: No Vision needs: No Physical Exam Vital Signs: Last Vital Signs Pulse 64 04/18/25 13:55 BP 130/82 11/01/24 13:55 Pulse Ox 98 11/01/24 13:55 Oxygen Delivery Method Room Air 11/01/24 13:55 BMI result Body Mass Index 29.6 Const General: cooperative, healthy appearing and no acute distress Nutritional Appearance: average body habitus Orientation/consciousness: patient oriented x3 Eyes Pupils: Equal, round and reactive pupils present Neuro Other: Right spastic hemiparesis Right UE- 5-/5 Right LE - distal 0-1/5 Proximal 4+/5 Increased tone in right UE and LE Mallampatti grade 4 speech - normal General: patient oriented x3 and moves all extremities Cranial nerves: Yes Facial sensation intact/muscles of mastication intact, Yes Equal, round and reactive pupils present, Yes Bilaterally intact EOM present, Yes Nystagmus not present, Yes Normal facial strength present and Yes Midline tongue present Cognition (Neuro): normal cognition Gait exam (Neuro): Spastic hemiparesis gait present Deep tendon reflexes (DTR's): Right triceps reflex intensity grade: 3+, Left triceps reflex intensity grade: 3+, Rt Biceps (C5, C6): 3+, Left biceps reflex intensity grade: 3+, Right brachioradialis reflex intensity grade: 4+, Left brachioradialis reflex intensity grade: 3+, Right patellar reflex intensity grade: 4+, Left patellar reflex intensity grade: 4+, Right ankle reflex intensity grade: 4+ and Left ankle reflex intensity grade: 4+ Coordination: [id number] test normal Results Reviewed Results Reviewed: ASHLEY Compliance Report 07/2024 to 10/2024 Total usage is 57/90 days and 63%, >4 hours 42 days and 47% Avg total per day is 2 hours and 48min at FT EPR Level 2 APAP [id number] Therapy is set to Median 8.5 to max 13.0, Leaks median 0-max 9.7cmH20 AHI is 9.7 AI is 7.3 obstructive and 1.8 central Jul 2024 US/US soft tissue head and/or neck IMPRESSION: 1. Reactive appearing bilateral cervical chain lymph nodes as discussed. No suspicious features seen. 2. There is continued clinical concern, CT of the neck with contrast would be recommended if felt to alter management. Alternatively, follow-up ultrasound in 6-8 weeks could be considered IMPRESSION: 1. Normal noncontrast MRI of the brain. 2. Bilateral maxillary sinus mucosal inflammatory changes. 3. A few prominent IJ chain lymph nodes are seen bilaterally one of which on the left has a thickened cortex. Recommend follow-up neck ultrasound at a clinically appropriate interval and correlate with clinical history. Jul 2023 EMG This is a 16-channel EEG with an EKG lead. The patient is reported awake during the tracing. Background EEG rhythm is low amplitude fast with the patient transitioning into light drowsiness. No definite sharp wave spikes, paroxysmal tendency, or asymmetry noted. Some EKG artifacts and lead and muscle artifacts are noted. Photic stimulation does not produce any significant abnormality. Hyperventilation is not performed. Cardiac lead does not reveal any significant abnormality. Assessment & Plan Assessment & Plan (1) ASHLEY (obstructive sleep apnea): Comment: Cerebral Palsey/ ASHLEY and Central Sleep Apnea? will monitor Code(s): G47.33 - Obstructive sleep apnea (adult) (pediatric) Category: Medical (2) Right SNHL: Code(s): H90.5 - Unspecified sensorineural hearing loss Category: Medical Qualifiers: Contralateral hearing status: unspecified Qualified Code(s): H90.5 - Unspecified sensorineural hearing loss (3) Hypersomnia: Code(s): G47.10 - Hypersomnia, unspecified Category: Medical (4) Epilepsy: Comment: last seizure 2013, complex partial, absence Code(s): G40.909 - Epilepsy, unspecified, not intractable, without status epilepticus Category: Medical Qualifiers: Epilepsy type: unspecified Intractability: not intractable Status epilepticus: without status epilepticus Qualified Code(s): G40.909 - Epilepsy, unspecified, not intractable, without status epilepticus (5) Hand pain: Code(s): M79.643 - Pain in unspecified hand Category: Medical Qualifiers: Laterality: right Qualified Code(s): M79.641 - Pain in right hand (6) Cerebral palsy: Comment: Right spastic hemiparesis Code(s): G80.9 - Cerebral palsy, unspecified Category: Medical Qualifiers: Cerebral palsy type: spastic hemiplegic Qualified Code(s): G80.2 - Spastic hemiplegic cerebral palsy (7) Snoring: Code(s): R06.83 - Snoring Category: Medical (8) Excessive daytime sleepiness: Code(s): G47.19 - Other hypersomnia Category: Medical (9) History of difficulty sleeping: Code(s): Z72.821 - Inadequate sleep hygiene Category: Medical (10) Anxiety about health: Code(s): R45.89 - Other symptoms and signs involving emotional state Category: Medical Plan ASHLEY Compliance Reviewed and emphasized daily use of CPAP, and setting a regimented sleep/wake schedule, let us know zeb if pressures are causing difficulty with breathing. EMG Jul 2023 reviewed, no seizure disorder or activity within the last 10 years MRI Jul 2024 reviewed with rupal and US with a few prominent IJ cervical lymph nodes noted, will f/u with pcp. PT for R. hand feels loose with pain and R. lower back pain when bending over. Anxiety is mild RAÚL of 7, discussed sleep routines, yoga, drinking plenty of water and seeking counseling as needed. Orders: Orders PT Evaluation and Treatment Today M54.50 - Low back pain, unspecified, M79.641 - Pain in right hand Patient Instructions: Sleep Hygiene provided: set a scheduled bedtime and wake time to help regulate the circadian rhythm and balance the release of pituitary hormones. Sleep in a dark room, temperatures below 68 degrees, and no devices n bed. Limit caffeinated products 6 hours prior to bed, and limit fluids 2-4 hours prior to bed. Gentle night yoga, diffusing essential oils, and playing soft music can be relaxing. MRI, EMG, and US was reviewed with patient. Will send him to PT for lower back pain as he continues to have difficulty when bending over to reach articles and his Rt hand continues to feel looser and he has pain, noted spasticity, will discuss botox at next visit if patient is interested to treatment. Discussed avoiding smoking, vaping, gummies, edibles as they can trigger seizure like activity. 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
== END 2024-11-01 14:42 | disposition home or self-care (01) ==
LOC: HO.HSMS 13:51
PROVIDERS: PCP Physician Assistant; Visit Provider Physician Assistant Medical
DX: G47.33 Obstructive sleep apnea (adult) (pediatric) (principal); H90.5 Unspecified sensorineural hearing loss; G47.10 Hypersomnia, unspecified; G40.909 Epilepsy, unspecified, not intractable, without status epilepticus; M79.641 Pain in right hand; G80.2 Spastic hemiplegic cerebral palsy; R06.83 Snoring; G47.19 Other hypersomnia; Z72.821 Inadequate sleep hygiene; R45.89 Other symptoms and signs involving emotional state
CPT/HCPCS: 99214

== ENCOUNTER → 2024-11-01 13:50 | Outpatient (BNVA) | payer OTHER, SELFPAY | PROVIDERS: PCP Physician Assistant; Visit Provider Physician Assistant Medical | DX: G80.2 Spastic hemiplegic cerebral palsy (principal); G47.33 Obstructive sleep apnea (adult) (pediatric); G47.10 Hypersomnia, unspecified; H90.5 Unspecified sensorineural hearing loss; M79.641 Pain in right hand; G40.909 Epilepsy, unspecified, not intractable, without status epilepticus | CPT/HCPCS: 99212 ==

== ENCOUNTER 2024-11-22 16:12 | Outpatient (AMB) | payer OTHER, SELFPAY ==
--- NOTE | 2024-11-22 16:15 | A.OFFPC_ITS ---
Vital Signs 11/22/24 16:17 Height 5 ft 6 in Weight 189 lb 2 oz BMI 30.5 BP 120/72 Blood Pressure Location Lt brachial Position Sitting Pulse 75 Pulse Source Pulse Oximeter Temp 97.6 F Temp Source Temporal Artery Scan Pulse Oximetry (%) 96 Oxygen Delivery Method Room Air Intake Visit Reasons: [facility] 11/18 Intake Note: Patient is here to follow-up after a visit the emergency department at [facility] on 11/18/24 and 11/20/24 Brand Representative Required: No Human Services Assistant: Not Required per policy Accompanied by: Self / Same As Patient Allergies cat dander [CATS] Allergy (Mild, Verified 11/22/24 16:16) UNKNOWN dog dander [DOGS] Allergy (Mild, Verified 11/22/24 16:16) UNKNOWN mold Allergy (Unknown, Verified 11/22/24 16:16) UNKNOWN cats Allergy (Unknown, Uncoded 11/22/24 16:16) Itching dogs Allergy (Unknown, Uncoded 11/22/24 16:16) Itching dust Allergy (Unknown, Uncoded 11/22/24 16:16) Itching mold Allergy (Unknown, Uncoded 11/22/24 16:16) unknown pollen Allergy (Unknown, Uncoded 11/22/24 16:16) Itching Tobacco use date assessed: 11/22/24 Dental Screening Dental Screen Date: 10/17/24 HPI HPI Comments History of Present Illness Details 24 y/o Male patient who presents to the clinic today for EDF. He was admitted at [facility] on 11/20/24 for Pharyngitis. Both Rapid test and throat culture are negative. Today Pt reports that symptoms have since resolved. [facility] Medical History (Updated 11/22/24 @ 16:48 by Darlene Hook NP) Acute pharyngitis Hypersomnia Snoring Class 1 obesity with body mass index (BMI) of 30.0 to 30.9 in adult Epilepsy Cerebral palsy Tinea pedis Surgical History History of foot surgery History of hernia surgery Family History Mother No problems noted. Father No problems noted. Social History Housing: Other (Live with parents) Alcohol intake: never Patient Tobacco Use Status: Never used Tobacco e-Cigarette/Vaping Use: Former Use Second Hand Smoke Exposure: No service: No Current occupational status: unemployed Cognitive needs: No Hearing needs: No Vision needs: No Questionnaire PHQ-9 Over the last 2 weeks, how often have you been bothered by any of the following problems? 1. Little interest or pleasure in doing things: not at all 2. Feeling down, depressed, or hopeless: not at all 3. Trouble falling or staying asleep, or sleeping too much: not at all 4. Feeling tired or having little energy: not at all 5. Poor appetite or overeating: not at all 6. Feeling bad about yourself - or that you are a failure or have let yourself or your family down: not at all 7. Trouble concentrating on things, such as reading the newspaper or watching television: not at all 8. Moving or speaking so slowly that other people could have noticed. Or the opposite - being so fidgety or restless that you have been moving around a lot more than usual: not at all 9. Thoughts that you would be better off or of hurting yourself in some way: not at all Total score: 0 Depression Screening Interpretation: Negative Depression Screening Done: Yes Source: Developed by Drs. Yusuf Caal, Connie Huffman, Albert Morales and colleagues, with an educational surya from [employer]. Thrive Questionnaire Date Thrive assessed: 11/22/24 I am a: Patient What is your living situation today?: I have a steady place to live Within the past 12 months, did the food you bought not last and you didn't have the money to get more?: Never true Within the past 12 months, did you worry whether your food would run out before you got money to buy more?: Never true Do you have trouble paying for medicines?: No Do you have trouble getting transportation to medical appointments?: No Do you have trouble paying your heating and electricity bill?: No Do you have trouble taking care of your child, family member or friend?: No Do you have trouble with day-to-day activities such as bathing, preparing meals, shopping, managing finances, etc.?: No Are you currently unemployed and looking for a job?: No Are you interested in more education?: No Please select the resources that you would like help with: None Currently or been in a relationship where the following occur: No concerns reported THRIVE Score: 0 AUDIT C Alcohol Use Questionnaire (AUDIT-C) 1. How often do you have a drink containing alcohol?: Never Total Score: 0 RAÚL-7 AMB Questionnaire RAÚL-7 Date RAÚL - 7 assessed: 10/17/24 Feeling nervous, anxious, or on edge: 0 = Not at all Not being able to stop or control worryin = Not at all Worrying too much about different things: 0 = Not at all Trouble relaxin = Not at all Being so restless that it is hard to sit still: 0 = Not at all Becoming easily annoyed or irritable: 0 = Not at all Feeling afraid as if something awful might happen: 0 = Not at all Total RAÚL-7 score (0-4 normal; 5-9 mild; 10-14 moderate; 15-21 severe): 0 Source: Developed by Drs. Yusuf Caal, Connie Huffman, Albert Morales and colleagues, with an educational surya from [employer]. Review of Systems Const All systems reviewed & are unremarkable except as noted in HPI and below Physical exam (Primary Care) Vital Signs: Last Vital Signs Temp 97.6 F 11/22/24 16:17 Pulse 75 11/22/24 16:17 BP 120/72 11/22/24 16:17 Pulse Ox 96 11/22/24 16:17 Oxygen Delivery Method Room Air 11/22/24 16:17 BMI result Body Mass Index 30.5 Tobacco/Smoking Status: Tobacco use Status Tobacco use date assessed 11/22/24 11/22/24 16:20 Patient Tobacco Use Status Never used Tobacco 11/22/24 16:20 e-Cigarette/Vaping Use Former Use 11/22/24 16:20 PHQ-9: PHQ-9 Score PHQ-9: Total score 0 11/22/24 16:20 Depression Screening Interpretation: Negative Thrive Assessment: Date of Thrive Assessment Date Thrive assessed 11/22/24 11/22/24 16:20 Currently or been in a relationship where the following occur: No concerns reported Const General: no acute distress Nutritional Appearance: overweight Orientation/consciousness: patient oriented x3 HENMT Head: Yes normocephalic Ears: external ears normal and TM's normal bilaterally General nose exam: Normal external nose present Face and sinus: Yes sinuses nontender Mouth: moist mucous membranes Resp Effort & Inspection: normal respiratory effort Auscultation: clear to auscultation bilaterally Cardio Heart sounds: S1 normal heart sound present and S2 normal heart sound present Neuro General: patient oriented x3 Coding Level of Care Code Est Pt Level 4 (98552) Diagnoses Acute pharyngitis, unspecified etiology J02.9 Pharyngitis/tonsillitis etiology: unspecified etiology Time Spent (min) 20 Assessment & Plan Assessment & Plan (1) Acute pharyngitis: Code(s): J02.9 - Acute pharyngitis, unspecified Category: Medical Qualifiers: Pharyngitis/tonsillitis etiology: unspecified etiology Qualified Code(s): J02.9 - Acute pharyngitis, unspecified Plan: Symptoms resolved.
[2024-11-22 16:17] VITALS: BP 120/72; PULSE 75; TEMP 36.4; O2SAT 96; BMI 30.5
== END 2024-11-22 17:08 | disposition home or self-care (01) ==
LOC: HO.HMCH 16:12
PROVIDERS: PCP Physician Assistant; Visit Provider Nurse Practitioner Family
DX: J02.9 Acute pharyngitis, unspecified (principal)

== ENCOUNTER → 2024-11-22 16:12 | Outpatient (BNVA) | payer OTHER, SELFPAY | PROVIDERS: PCP Physician Assistant; Visit Provider Nurse Practitioner Family | DX: J02.9 Acute pharyngitis, unspecified (principal) | CPT/HCPCS: 99212 ==

== ENCOUNTER 2025-02-05 14:50 | Outpatient (AMB) | payer OTHER, SELFPAY ==
[2025-02-05 15:02] VITALS: BP 126/78; PULSE 70; O2SAT 96; BMI 32.5
--- NOTE | 2025-02-05 15:02 | MHC.OFFVIS ---
Vital Signs 02/05/25 15:02 Height 5 ft 6 in Weight 201 lb 6 oz BMI 32.5 BP 126/78 Blood Pressure Location Lt brachial Position Sitting Pulse 70 Pulse Source Pulse Oximeter Pulse Oximetry (%) 96 Oxygen Delivery Method Room Air Intake Visit Reasons: 3 m Follow up Intake Note: Patient presents follow up ASHLEY. PT/compliance in chart(33/90 days, >=4hrs-14%, Average usage-1hr 7min, Med Pressure-7.2, Med leaks-0.1, AHI-8.7). Accompanied by: Self / Same As Patient Allergies cat dander (CATS) Allergy (Mild, Verified 02/05/25 15:04) UNKNOWN dog dander (DOGS) Allergy (Mild, Verified 02/05/25 15:04) UNKNOWN mold Allergy (Unknown, Verified 02/05/25 15:04) UNKNOWN cats Allergy (Unknown, Uncoded 11/22/24 16:16) Itching dogs Allergy (Unknown, Uncoded 11/22/24 16:16) Itching dust Allergy (Unknown, Uncoded 11/22/24 16:16) Itching mold Allergy (Unknown, Uncoded 11/22/24 16:16) unknown pollen Allergy (Unknown, Uncoded 11/22/24 16:16) Itching HPI Comments Details: 24y/o male with cerebral palsy - comes for further management of his seizures. He has been seizure free for >15 years. He is managed on Baclofen 5mg po qhs and diclofenac for arthritis. PT completed with improved pain and rom. PMH Cerebral Palsy with mild r. sided weakness. ASHLEY 10/2024 -01/2025 Total average use is 33/90 days and 16% >4 hours 1hour 5min Press [id number] Leaks [id number] AHI 8.9/hr He is doing the stretches as directed by PT for back pain. Patient's pain has decreased to 5-7 in severity, it does increase to 8-9. His R. hip is rotated and working with PT on this. He goes to bed at 2am gets up at 7am, still snores loudly, c/o fatigue and has fragmented sleep. He gets up 1-2x with daughter. He started having seizures in his childhood - between ages 2-5. He was trialed on various medications. His seizures are staring episodes lasting 1-2 min.He denies any Tonic clonic convulsions. Memory is poor, forgets tasks, easily gets distracted, and misplaces things. He stays home with his disabled daughter. He does not drive and does not have a license. 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 He is trying to taper off of smoking MJ, now 7-8/week. He gets anxious easily and declines medications today. He cleans his mask, hoses and changes filters, fills reservoir with water daily. Patient education provided today for compliance of ASHLEY due to his h/o cerebral palsy, and his AHI is not well controlled will send him for titration study. [facility] Medical History Acute pharyngitis Hypersomnia Snoring Class 1 obesity with body mass index (BMI) of 30.0 to 30.9 in adult Epilepsy Cerebral palsy Tinea pedis Surgical History History of foot surgery History of hernia surgery Family History Mother No problems noted. Father No problems noted. Social History Housing: Other (Live with parents) Alcohol intake: never Patient Tobacco Use Status: Never used Tobacco e-Cigarette/Vaping Use: Former Use Second Hand Smoke Exposure: No service: No Current occupational status: unemployed Cognitive needs: No Hearing needs: No Vision needs: No Physical Exam Vital Signs: Last Vital Signs Pulse 70 02/05/25 15:02 BP 126/78 02/05/25 15:02 Pulse Ox 96 02/05/25 15:02 Oxygen Delivery Method Room Air 02/05/25 15:02 BMI result Body Mass Index 32.5 Const General: cooperative, healthy appearing and no acute distress Nutritional Appearance: average body habitus Orientation/consciousness: patient oriented x3 Eyes Pupils: Equal, round and reactive pupils present Neuro Other: Right spastic hemiparesis Right UE- 5-/5 Right LE - distal 0-1/5 Proximal 4+/5 Increased tone in right UE and LE Mallampatti grade 4 speech - normal General: patient oriented x3 and moves all extremities Cranial nerves: Yes Facial sensation intact/muscles of mastication intact, Yes Equal, round and reactive pupils present, Yes Bilaterally intact EOM present, Yes Nystagmus not present, Yes Normal facial strength present and Yes Midline tongue present Cognition (Neuro): normal cognition Gait exam (Neuro): Spastic hemiparesis gait present Results Reviewed Results Reviewed: ASHLEY 10/2024 -01/2025 Total average use is 33/90 days and 16% >4 hours 1hour 5min Press [id number] Leaks [id number] AHI 8.9/hr Assessment & Plan Assessment & Plan (1) ASHLEY (obstructive sleep apnea): Comment: Cerebral Palsey/ ASHLEY and Central Sleep Apnea? will monitor Code(s): G47.33 - Obstructive sleep apnea (adult) (pediatric) Category: Medical (2) History of difficulty sleeping: Code(s): Z72.821 - Inadequate sleep hygiene Category: Medical (3) Chronic fatigue: Code(s): R53.82 - Chronic fatigue, unspecified Category: Medical Plan Titration study as AHI has not been well controlled. Labs to r/o nutritional deficiencies b12/anemia / mma /homocystein/ vitamin d/ Compliance is once again reviewed with patient today and significant risk factors reviewed due to ASHLEY. F/U in 3 months re: compiance post titration Orders: Orders Ferritin Today Z72.821 - Inadequate sleep hygiene Vitamin B12 and Folate Today Z72.821 - Inadequate sleep hygiene Vitamin D 25-OH Total Today Z72.821 - Inadequate sleep hygiene RT PSG in-lab sleep titration Today G47.33 - Obstructive sleep apnea (adult) (pediatric) Homocysteine Today G47.9 - Sleep disorder, unspecified, R53.83 - Other fatigue, Z72.821 - Inadequate sleep hygiene Magnesium Today Z72.821 - Inadequate sleep hygiene Methylmalonic Acid Today G47.9 - Sleep disorder, unspecified, R53.83 - Other fatigue, Z72.821 - Inadequate sleep hygiene Vitamin B1 Today Z72.821 - Inadequate sleep hygiene TSH reflex Free T4 Today Z72.821 - Inadequate sleep hygiene Patient Instructions: Sleep Hygiene provided: set a scheduled bedtime and wake time to help regulate the circadian rhythm and balance the release of pituitary hormones. Sleep in a dark room, temperatures below 68 degrees, and no devices n bed. Limit caffeinated products 6 hours prior to bed, and limit fluids 2-4 hours prior to bed. Gentle night yoga, diffusing essential oils, and playing soft music can be relaxing. Coding Level of Care Code Est Pt Level 4 (82629) Diagnoses ASHLEY (obstructive sleep apnea) G47.33 History of difficulty sleeping Z72.821 Chronic fatigue R53.82 Time Spent (min) 30 Comment AHI is continuously elevated
== END 2025-02-05 15:43 | disposition home or self-care (01) ==
LOC: HO.HSMS 14:51
PROVIDERS: PCP Physician Assistant; Visit Provider Physician Assistant Medical
DX: G47.33 Obstructive sleep apnea (adult) (pediatric) (principal); Z72.821 Inadequate sleep hygiene; R53.82 Chronic fatigue, unspecified
CPT/HCPCS: 99214

== ENCOUNTER → 2025-02-05 14:50 | Outpatient (BNVA) | payer OTHER, SELFPAY | PROVIDERS: PCP Physician Assistant; Visit Provider Physician Assistant Medical | DX: G47.33 Obstructive sleep apnea (adult) (pediatric) (principal); R53.82 Chronic fatigue, unspecified; Z72.821 Inadequate sleep hygiene | CPT/HCPCS: 99212 ==

== ENCOUNTER 2025-02-19 13:39 | Outpatient (REF) | payer OTHER, SELFPAY ==
[2025-02-19 18:52] LABS: Magnesium 2.2 mg/dL (1.6-2.6)
[2025-02-19 19:10] LABS: Ferritin 112 ng/mL (20-250)
[2025-02-19 19:19] LABS: Folate 7.6 ng/mL (> or = 4.0); Vitamin B12 300 pg/mL (200-900)
== END 2025-02-19 13:40 | disposition home or self-care (01) ==
LOC: HO.HKASLDS 13:39
PROVIDERS: Visit Provider Physician Assistant Medical
DX: R53.83 Other fatigue (principal); G47.9 Sleep disorder, unspecified; Z72.821 Inadequate sleep hygiene
CPT/HCPCS: 36415; 82306; 82607; 82728; 82746; 83090; 83735; 83921; 84425; 84443

== ENCOUNTER 2025-03-19 13:01 | Outpatient (RCR) | payer OTHER, SELFPAY ==
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
== END 2025-05-08 08:42 | disposition home or self-care (01) ==
LOC: HO.PTS 13:01
PROVIDERS: PCP Physician Assistant; Visit Provider Physician Assistant Medical
DX: M79.641 Pain in right hand (principal); M54.50 Low back pain, unspecified
CPT/HCPCS: 97110; 97140; 97161; 97530

== ENCOUNTER 2025-06-17 14:24 | Outpatient (AMB) | payer OTHER, SELFPAY ==
[2025-06-17 14:31] VITALS: BP 130/82; PULSE 79; O2SAT 98; BMI 33.9
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
== END 2025-06-17 15:23 | disposition home or self-care (01) ==
LOC: HO.HSMS 14:25
PROVIDERS: PCP Physician Assistant; Visit Provider Physician Assistant Medical
DX: G80.2 Spastic hemiplegic cerebral palsy (principal); M62.838 Other muscle spasm; G47.33 Obstructive sleep apnea (adult) (pediatric); Z72.821 Inadequate sleep hygiene; R53.82 Chronic fatigue, unspecified
CPT/HCPCS: 99214

== ENCOUNTER → 2025-06-17 14:24 | Outpatient (BNVA) | payer OTHER, SELFPAY | PROVIDERS: PCP Physician Assistant; Visit Provider Physician Assistant Medical | DX: G47.33 Obstructive sleep apnea (adult) (pediatric) (principal); G80.2 Spastic hemiplegic cerebral palsy; M62.838 Other muscle spasm; R53.82 Chronic fatigue, unspecified; Z72.821 Inadequate sleep hygiene; Z99.89 Dependence on other enabling machines and devices | CPT/HCPCS: 99212 ==

== ENCOUNTER 2025-06-20 14:42 | Outpatient (AMB) | payer OTHER, SELFPAY ==
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
[2025-06-20 15:06] VITALS: BP 108/72; PULSE 56; TEMP 36.2; O2SAT 99; BMI 33.3
== END 2025-06-20 16:37 | disposition home or self-care (01) ==
LOC: HO.HMCH 14:43
PROVIDERS: PCP Physician Assistant; Visit Provider Nurse Practitioner Family
DX: S06.0X0A Concussion without loss of consciousness, initial encounter (principal)

== ENCOUNTER → 2025-06-20 14:42 | Outpatient (BNVA) | payer OTHER, SELFPAY | PROVIDERS: PCP Physician Assistant; Visit Provider Nurse Practitioner Family | DX: S06.0X0A Concussion without loss of consciousness, initial encounter (principal) | CPT/HCPCS: 99212 ==

== ENCOUNTER 2025-07-15 12:39 | Outpatient (AMB) | payer OTHER, SELFPAY ==
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
[2025-07-15 12:53] VITALS: BP 120/80; PULSE 71; TEMP 36.4; O2SAT 96; BMI 34.1
== END 2025-07-15 13:20 | disposition home or self-care (01) ==
LOC: HO.HMCH 12:40
PROVIDERS: PCP Physician Assistant; Visit Provider Physician Assistant
DX: Z00.00 Encounter for general adult medical examination without abnormal findings (principal); H53.8 Other visual disturbances; G80.2 Spastic hemiplegic cerebral palsy; H93.8X3 Other specified disorders of ear, bilateral; Z13.1 Encounter for screening for diabetes mellitus

== ENCOUNTER 2025-07-15 12:39 | Outpatient (REF) | payer OTHER, SELFPAY ==
[2025-07-15 15:10] LABS: Alanine Aminotransferase 30 U/L (0-40); Albumin Level 4.8 g/dL (3.5-5.0); Alkaline Phosphatase 110 U/L (39-117); Anion Gap 10 (12-20); Aspartate Amino Transferase 38 U/L (5-37); Blood Urea Nitrogen 12 mg/dL (9-16); Calcium 10.1 mg/dL (8.4-10.2); Carbon Dioxide 27 mmol/L (22-29); Chloride 107 mmol/L (96-108); Estimated Glomerular Filt Rate > 60; Potassium 4.3 mmol/L (3.3-5.1); Sodium 140 mmol/L (135-145); Total Protein 7.3 g/dL (6.5-8.0)
== END 2025-07-15 12:40 | disposition home or self-care (01) ==
LOC: HO.LAB 12:39
PROVIDERS: PCP Physician Assistant; Visit Provider Physician Assistant
DX: Z13.1 Encounter for screening for diabetes mellitus (principal); Z00.00 Encounter for general adult medical examination without abnormal findings; E51.9 Thiamine deficiency, unspecified; H53.8 Other visual disturbances; G80.2 Spastic hemiplegic cerebral palsy; H93.8X3 Other specified disorders of ear, bilateral
CPT/HCPCS: 36415; 80053; 84425; 99395